=== PATIENT | female | born 1970 | race African-American/Black ===

== ENCOUNTER 2020-08-22 13:34 | Emergency (ER) | payer MEDICAID ==
[~2020-08-22] VITALS: Ht 162.6 cm; Wt 71.7 kg
[2020-08-22 13:38] VITALS: BP 157/98
[2020-08-22] MEDS ORDERED: NACL 0.9% 1,000 ML IV ONE (14:30)
[2020-08-22] MEDS ORDERED: ONDANSETRON 4 MG/2 ML VIAL IVP ONE (14:30)
[2020-08-22] MEDS ORDERED: MORPHINE SULFATE 4 MG/ML SYR IVP ONE (14:30)
[2020-08-22 15:08] LABS: BASOPHILS % (AUTO) 0.7 % (0.0-2.0); EOSINOPHILS # (AUTO) 0.2 K/uL (0-0.4); EOSINOPHILS % (AUTO) 2.8 % (0.0-4.0); HEMATOCRIT 39.1 % (36-48); HEMOGLOBIN 13.1 g/dL (12.0-16.0); LYMPHOCYTES # (AUTO) 2.6 K/uL (2.5-16.5); LYMPHOCYTES % (AUTO) 39.2 % (20.5-51.1); MEAN CORPUSCULAR HEMOGLOBIN 31 pg (27-31); MEAN CORPUSCULAR HGB CONC 34 g/dL (33-37); MEAN CORPUSCULAR VOLUME 92.7 fL (80-94); MONOCYTES # (AUTO) 0.5 K/uL (0.8-1.0); MONOCYTES % (AUTO) 6.9 % (1.7-9.3); NEUTROPHILS # (AUTO) 3.3 K/uL (1.8-7.7); NEUTROPHILS % (AUTO) 50.4 % (42.2-75.2); PLATELET COUNT (AUTO) 259 K/uL (140-450); RED BLOOD CELL COUNT(AUTO) 4.21 MIL/uL (4.20-5.40); WHITE BLOOD COUNT (AUTO) 6.6 K/uL (4.8-10.8)
[2020-08-22 15:16] LABS: ANION GAP 11.7 (8-16); CREATININE 0.7 mg/dL (0.6-1.3); POTASSIUM 4.7 mmol/L (3.5-5.1)
[2020-08-22 15:23] LABS: ALBUMIN 3.9 g/dL (3.4-5.0); TOTAL BILIRUBIN 0.5 mg/dL (0.0-1.0)
[2020-08-22] MEDS ORDERED: CEPH500C16 PO (16:21)
[2020-08-22] MEDS ORDERED: cefTRIAXone 1,000 MG in LIDOCAINE MPF 1% 2.1 ML IM ONE (16:25)
[2020-08-22] MEDS ORDERED: LIDOCAINE MPF 1% 5 ML ONE (16:31)
[2020-08-22] MEDS ORDERED: cefTRIAXone 1,000 MG VIAL ONE (16:31)
[2020-08-22] MEDS ORDERED: NAPR-54 PO (16:35)
[2020-08-22 16:52] VITALS: BP 157/98
== END 2020-08-22 16:52 | disposition home or self-care (01) ==
LOC: MED 13:34
DX: N39.0 Urinary tract infection, site not specified (principal); M54.9 Dorsalgia, unspecified; R30.0 Dysuria; R31.9 Hematuria, unspecified; I10 Essential (primary) hypertension; Z79.899 Other long term (current) drug therapy; Z98.890 Other specified postprocedural states
CPT/HCPCS: 36415; 74176; 80053; 81002; 81025; 85025; 87086; 96361; 96372; 96374; 96375; 99284; J0696; J2001; J2270; J2405; J7030

== ENCOUNTER 2020-09-21 11:41 | Emergency (ER) | payer MEDICAID ==
[~2020-09-21] VITALS: Ht 165.1 cm; Wt 72.6 kg
[~2020-09-21 11:41] MED LIST: CEPH500C16 PO; NAPR-54 PO
[2020-09-21] MEDS ORDERED: ASPIRIN 81 MG TAB.CHEW PO ONE (12:20)
[2020-09-21] MEDS ORDERED: KETOROLAC 15 MG/ML VIAL IVP ONE (12:20)
[2020-09-21] MEDS ORDERED: NACL 0.9% 1,000 ML IV SCH (12:20)
[2020-09-21] MEDS ORDERED: FAMOTIDINE 20 MG/2 ML VIAL IVP ONE (12:20)
[2020-09-21 13:04] LABS: BASOPHILS % (AUTO) 0.5 % (0.0-2.0); EOSINOPHILS # (AUTO) 0.2 K/uL (0-0.4); EOSINOPHILS % (AUTO) 2.5 % (0.0-4.0); HEMATOCRIT 34.4 % (36-48); HEMOGLOBIN 11.6 g/dL (12.0-16.0); LYMPHOCYTES # (AUTO) 2.2 K/uL (2.5-16.5); LYMPHOCYTES % (AUTO) 34.4 % (20.5-51.1); MEAN CORPUSCULAR HEMOGLOBIN 31 pg (27-31); MEAN CORPUSCULAR HGB CONC 34 g/dL (33-37); MONOCYTES # (AUTO) 0.5 K/uL (0.8-1.0); MONOCYTES % (AUTO) 7.6 % (1.7-9.3); NEUTROPHILS # (AUTO) 3.6 K/uL (1.8-7.7); PLATELET COUNT (AUTO) 225 K/uL (140-450); RED CELL DISTRIBUTION WIDTH 13.4 % (11.6-13.7); WHITE BLOOD COUNT (AUTO) 6.5 K/uL (4.8-10.8)
[2020-09-21 13:40] LABS: ALBUMIN 3.9 g/dL (3.4-5.0); ANION GAP 10.7 (8-16); CARBON DIOXIDE 27.8 mmol/L (21-32); CREATININE 0.5 mg/dL (0.6-1.3); POTASSIUM 4.5 mmol/L (3.5-5.1); TOTAL BILIRUBIN 0.4 mg/dL (0.0-1.0)
[2020-09-21] MEDS ORDERED: SULF-59 PO (14:15)
[2020-09-21] MEDS ORDERED: NAPR-1704 PO (14:15)
[2020-09-21] MEDS ORDERED: LACT-103 PO (14:15)
[2020-09-21] MEDS ORDERED: ACET-8386 PO (14:15)
[2020-09-21 14:38] VITALS: BP 144/72
[2020-09-21 16:46] LABS: BILIRUBIN,URINE NEGATIVE (NEGATIVE); BLOOD, URINE 3+ (NEGATIVE); LEUKOCYTE ESTERASE ,URINE NEGATIVE (NEGATIVE); NITRITE, URINE POSITIVE (NEGATIVE); PH,URINE 6.5 (5.0-9.0); UGLUCOSE NEGATIVE (NEGATIVE)
[2020-09-21 16:49] LABS: APPEARANCE,URINE CLOUDY (CLEAR); COLOR,URINE BLOODY (YELLOW); RBC,URINE TOO NUMEROUS TO COUN /HPF (0-5); WBC,URINE NONE SEEN /HPF (0-5)
== END 2020-09-21 14:38 | disposition home or self-care (01) ==
LOC: MED 11:41
DX: K80.20 Calculus of gallbladder without cholecystitis without obstruction (principal); K59.00 Constipation, unspecified; N39.0 Urinary tract infection, site not specified; D64.9 Anemia, unspecified; I11.9 Hypertensive heart disease without heart failure; F17.210 Nicotine dependence, cigarettes, uncomplicated
CPT/HCPCS: 36415; 71045; 76705; 80053; 81001; 81025; 82150; 83690; 84484; 85025; 87086; 93005; 96361; 96374; 96375; 99285; J1885; J3490; J7030

== ENCOUNTER 2020-12-07 17:25 | Emergency (ER) | payer MEDICAID ==
[~2020-12-07] VITALS: Ht 157.5 cm; Wt 72.7 kg
[~2020-12-07 17:25] MED LIST changes: +ACET-8386 PO; +LACT-103 PO; +NAPR-1704 PO; +SULF-59 PO
[2020-12-07 17:41] VITALS: BP 129/91
--- NOTE | 2020-12-07 17:47 | NUR ---
PT TO WAIT IN LOBBY, GIVEN URINE CUP
--- NOTE | 2020-12-07 19:29 | NUR ---
Pt ambulated to bed 09.
[2020-12-07 19:50] LABS: APPEARANCE,URINE CLEAR (CLEAR); BILIRUBIN,URINE NEGATIVE (NEGATIVE); BLOOD, URINE TRACE-I (NEGATIVE); COLOR,URINE YELLOW (YELLOW); LEUKOCYTE ESTERASE ,URINE NEGATIVE (NEGATIVE); NITRITE, URINE POSITIVE (NEGATIVE); UGLUCOSE NEGATIVE (NEGATIVE)
[2020-12-07 19:51] LABS: BASOPHILS # (AUTO) 0.1 K/uL (0.00-0.22); BASOPHILS % (AUTO) 0.8 % (0.0-2.0); EOSINOPHILS # (AUTO) 0.1 K/uL (0-0.4); HEMATOCRIT 38.2 % (36-48); HEMOGLOBIN 12.7 g/dL (12.0-16.0); LYMPHOCYTES # (AUTO) 1.6 K/uL (2.5-16.5); LYMPHOCYTES % (AUTO) 17.7 % (20.5-51.1); MEAN CORPUSCULAR HEMOGLOBIN 31 pg (27-31); MEAN CORPUSCULAR HGB CONC 33 g/dL (33-37); MEAN CORPUSCULAR VOLUME 92.4 fL (80-94); MONOCYTES # (AUTO) 0.4 K/uL (0.8-1.0); MONOCYTES % (AUTO) 4.7 % (1.7-9.3); NEUTROPHILS % (AUTO) 75.8 % (42.2-75.2); PLATELET COUNT (AUTO) 231 K/uL (140-450); RED BLOOD CELL COUNT(AUTO) 4.13 MIL/uL (4.20-5.40); RED CELL DISTRIBUTION WIDTH 12.9 % (11.6-13.7); WHITE BLOOD COUNT (AUTO) 9.2 K/uL (4.8-10.8)
--- NOTE | 2020-12-07 20:00 | NUR ---
RECEIVED IN BED 9 WITH C/O DIFFUSE ABDOMINAL PAIN. STATES HAS FREQUENT UTI'S AND THAT URINE HAS BEEN DARK AND MALODOROUS. IS AWAKE AND ALERT, SKIN IS WARM AND DRY. PMH: CARDIAC NKDA
[2020-12-07 20:13] LABS: ALBUMIN 4.1 g/dL (3.4-5.0); ANION GAP 14.7 (8-16); CARBON DIOXIDE 26.3 mmol/L (21-32); CREATININE 0.7 mg/dL (0.6-1.3); TOTAL BILIRUBIN 0.5 mg/dL (0.0-1.0)
[2020-12-07 20:23] LABS: RBC,URINE 0-5 /HPF (0-5)
--- NOTE | 2020-12-07 20:30 | NUR ---
PT TAKEN TO CT VIA W/C
--- NOTE | 2020-12-07 20:37 | NUR ---
Serina thompson in [facility] - 12/07/20 at [address] VIA W/C
[2020-12-07] MEDS ORDERED: IBUP-2213 PO (21:50)
[2020-12-07] MEDS ORDERED: CEPH-588 PO (22:06)
[2020-12-07 22:14] VITALS: BP 130/89
--- NOTE | 2020-12-07 22:15 | NUR ---
Patient discharged with v/s stable. Written and verbal after care instructions given and explained. Patient verbalized understanding. Ambulatory with steady gait. All questions addressed prior to discharge. Advised to follow up with PMD.
== END 2020-12-07 22:15 | disposition home or self-care (01) ==
LOC: MED 17:25
DX: R10.84 Generalized abdominal pain (principal); R14.0 Abdominal distension (gaseous); I11.9 Hypertensive heart disease without heart failure
CPT/HCPCS: 36415; 80053; 81001; 81003; 81025; 83690; 84703; 85025; 87086; 99284